=== PATIENT | male | born 1965 | race Two or more races ===

== ENCOUNTER 2017-04-29 08:44 | Emergency (ER) | payer MEDICAID ==
[~2017-04-29] VITALS: Ht 165.1 cm; Wt 90.7 kg
[~2017-04-29 08:44] MED LIST: NOVOLIN; ZOLP10TA
[2017-04-29 09:42] VITALS: BP 130/72
[2017-04-29] MEDS ORDERED: PROPARACAINE HCL 0.5% OPTH(EYE) SOL 15ML OP ONE (10:30)
[2017-04-29] MEDS ORDERED: FLUORESCEIN SOD 1 MG TEST STRIP RIGHTEYE ONE (10:30)
== END 2017-04-29 11:16 | disposition home or self-care (01) ==
LOC: ER 08:44
DX: S05.01XA Injury of conjunctiva and corneal abrasion without foreign body, right eye, initial encounter (principal); E11.9 Type 2 diabetes mellitus without complications; K21.9 Gastro-esophageal reflux disease without esophagitis; E78.5 Hyperlipidemia, unspecified; I10 Essential (primary) hypertension; X58.XXXA Exposure to other specified factors, initial encounter; Y93.89 Activity, other specified; Y99.8 Other external cause status; Y92.89 Other specified places as the place of occurrence of the external cause

== ENCOUNTER 2017-06-22 09:34 | Emergency (ER) | payer MEDICAID ==
[~2017-06-22] VITALS: Ht 165.1 cm; Wt 90.7 kg
[2017-06-22 09:49] VITALS: BP 106/66
[2017-06-22] MEDS ORDERED: KETOROLAC TROMETH 60MG/2ML VIAL IM ONE (11:00)
== END 2017-06-22 11:06 | disposition home or self-care (01) ==
LOC: ER 09:34
DX: S93.601A Unspecified sprain of right foot, initial encounter (principal); E11.9 Type 2 diabetes mellitus without complications; K21.9 Gastro-esophageal reflux disease without esophagitis; E78.5 Hyperlipidemia, unspecified; I10 Essential (primary) hypertension; X50.0XXA Overexertion from strenuous movement or load, initial encounter; Y93.89 Activity, other specified; Y99.8 Other external cause status; Y92.89 Other specified places as the place of occurrence of the external cause
CPT/HCPCS: 73630; 96372; 99284; J1885

== ENCOUNTER 2020-06-13 08:34 | Emergency (ER) | payer MEDICAID ==
[~2020-06-13] VITALS: Ht 165.1 cm; Wt 90.7 kg
[2020-06-13 09:27] VITALS: BP 149/70
== END 2020-06-13 11:08 | disposition home or self-care (01) ==
LOC: ER 08:34
DX: M79.5 Residual foreign body in soft tissue (principal); E11.9 Type 2 diabetes mellitus without complications; K21.9 Gastro-esophageal reflux disease without esophagitis; E78.5 Hyperlipidemia, unspecified; Z79.899 Other long term (current) drug therapy
CPT/HCPCS: 74018; 74176

== ENCOUNTER 2024-11-12 08:10 | Emergency (ER) | payer MEDICAID ==
[~2024-11-12] VITALS: Ht 165.1 cm; Wt 93.1 kg
[2024-11-12 08:28] VITALS: BP 139/57; PULSE 94; RESP 20; TEMP 98.6; O2SAT 95
--- NOTE | 2024-11-12 08:54 | ED.PDOC ---
Musculoskeletal HPI Comments A 59 YEAR OLD MALE PRESENTS TO THE ED WITH COMPLAINT OF RIGHT KNEE PAIN S/P CONTUSION AT WORK. PATIENT STATES THAT HE WAS AT WORK AND ACCIDENTALLY SLAMMED HIS RIGHT KNEE INTO A METAL FRAME AND HAS PAIN AND SOME MILD SWELLING. THERE IS NO DEFORMITY TO THE KNEE, BUT STATES THAT HE HAS 5/10 PAIN TO THE RIGHT KNEE. PATIENT IS ABLE TO AMBULATE WITH NORMAL GAIT. PATIENT DENIES FEVER, CHILLS, SHORTNESS OF BREATH, CHEST PAIN, ABDOMINAL PAIN, NAUSEA, VOMITING, HEADACHE, OR OTHER COMPLAINTS. NO OTHER SYMPTOMS OR MODIFYING FACTORS AT THIS TIME. PATIENT IS ALERT, ORIENTED X 4, AND HAS STEADY GAIT. Chief Complaint: Lower Extremity Time Seen by MD: 08:44 Primary Care Provider: NONE Reviewed Notes: Medications, Allergies Allergies: Coded Allergies: Cephalexin (Verified Allergy, Unknown, hives, 06/16/20) Penicillins (Verified Allergy, Unknown, 06/16/20) Home Meds Reported Medications Zolpidem Tartrate (Ambien) 10 Mg Tab 05/23/10 [Novolin] No Conflict Check 05/23/10 Information Source: Patient Mode of Arrival: Ambulatory Location: Left Extremity Location: Knee, Leg Timing: Days Prehospital treatment: None Severity: Moderate Able to Move Extremity: Yes Bear Weight: Fully Pain: Moderate Hand Dominance: Right Mechanism: Blunt Trauma Circumstances: Accident Onset of Symptoms: After Trauma Symptoms: Swelling, Pain DVT Risk Factors: NONE Last Tetanus: Unknown Associated signs and symptoms: Knee pain Past Medical History PAST MEDICAL HISTORY: DM, GERD, High Lipids, HTN Surgical History: Denies all surgeries Family History Family History: Unobtainable Social History Smoker: Non-Smoker Alcohol: Denies ETOH Use Drugs: Denies Drug Use Lives In: Home Constitutional: denies: chills, diaphoresis, fatigue, fever, malaise, sweats, weakness, others EENTM: denies: blurred vision, double vision, ear bleeding, ear discharge, ear drainage, ear pain, ear ringing, eye pain, eye redness, hearing loss, mouth pain, mouth swelling, nasal discharge, nose bleeding, nose congestion, nose pain, photophobia, tearing, throat pain, throat swelling, voice changes, others Respiratory: denies: cough, hemoptysis, orthopnea, SOB at rest, shortness of breath, SOB with excertion, stridor, wheezing, others Cardiovascular: denies: chest pain, dizzy spells, diaphoresis, Dyspnea on exertion, edema, irregular heart beat, left arm pain, lightheadedness, palpitations, PND, syncope, others Gastrointestinal: denies: abdomen distended, abdominal pain, blood streaked bowels, constipated, diarrhea, dysphagia, difficulty swallowing, hematemesis, melena, nausea, poor appetite, poor fluid intake, rectal bleeding, rectal pain, vomiting, others Genitourinary: denies: burning, dysuria, flank pain, frequency, hematuria, incontinence, penile discharge, penile sore, pain, testicle pain, testicle swelling, urgency, others Neurological: denies: dizziness, fainting, headache, left sided numbness, left sided weakness, numbness, paresthesia, pre-existing deficit, right sided numbness, right sided weakness, seizure, speech problems, tingling, tremors, weakness, others Musculoskeletal: reports: muscle pain; denies: back pain, gout, joint pain, joint swelling, muscle stiffness, neck pain, others Integumetry: denies: bruises, change in color, change in hair/nails, dryness, laceration, lesions, lumps, rash, wounds, others Allergic/Immunocompromised: denies: Difficulty Healing, Frequent Infections, Hives, Itching, others Hematologic/Lymphatic: denies: anemia, blood clots, easy bleeding, easy bruising, swollen glands, others Endocrine: denies: excessive hunger, excessive sweating, excessive thirst, excessive urination, flushing, intolerance to cold, intolerance to heat, unexplained weight gain, unexplained weight loss, others Psychiatric: denies: anxiety, bipolar disorder, depression, hopeless, panic disorder, schizophrenia, sleepless, suicidal, others All Other Systems: Reviewed and Negative Physical Exam General Appearance: No Apparent Distress, Normal HEENT: Normal ENT Inspection, PERRL/EOMI, Pharynx Normal, TMs Normal Neck: Full Range of Motion, Non-Tender, Normal, Normal Inspection Respiratory: Chest Non-Tender, Lungs Clear, No Accessory Muscle Use, No Respiratory Distress, Normal Breath Sounds Cardiovascular: No Edema, No JVD, No Murmur, No Gallop, Normal Peripheral Pulses, Regular Rate/Rhythm Breast Exam: Deferred Gastrointestinal: No Organomegaly, Non Tender, No Pulsatile Mass, Normal Bowel Sounds, Soft Genitalia: Deferred Pelvic: Deferred Rectal: Deferred Extremities: No calf tenderness, Normal capillary refill, Normal range of motion, No pedal edema, Tender (AND CONTUSION ON LEFT UNDER ANTERIOR KNEE, NO BONY TENDERNESS, SWELLING AND DEFORMITY, NO DVT SIGNS. 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 ), Dry, Normal Color, Warm Peripheral Pulses: 2+ carotid (R), 2+ carotid (L), 2+ dorsalis pedis (R), 2+ dorsalis pedis (L) Lymphatic: No Adenopathy Was a procedure done? Was a procedure done?: No Differential Diagnosis EXT Differential Diagnosis: Fracture, Sprain, Contusion, Strain, Bursitis X-Ray, Labs, Meds, VS Vital Signs Date Time Temp Pulse Resp B/P (MAP) Pulse Ox O2 Delivery O2 Flow Rate FiO2 11/12/24 08:28 98.6 99 20 139/57 (84) 95 98.6 11/12/24 08:28 94 20 95 Room Air 11/12/24 08:17 98.6 94 20 139/57 (84) 95 X-Ray, Labs, Meds, VS Comment LEFT TIB/FIB X-RAY: INTERPRETED BY ME. NO ACUTE FINDINGS. NO FRACTURES OR DISLOCATION. PENDING RADIOLOGIST REPORT. EXTERNAL MEDICAL RECORDS REVIEWED: [NONE] INDEPENDENT HISTORIANS: [NONE] SOCIAL DETERMINANTS OF HEALTH: [NONE] LABS ORDERED: NONE REVIEWED AND INTERPRETED RESULTS: NONE IMAGING ORDERED: NONE TREATMENTS ORDERED: PROCEDURES PERFORMED: NONE CRITICAL CARE TIME: NONE I HAVE DISCUSSED THE PATIENT WITH THE ATTENDING PHYSICIAN DR. ANNA AND HE AGREES WITH THE PATIENT'S PLAN OF CARE AND DISPOSITION. BASED ON HISTORY OF PRESENT ILLNESS, AND PHYSICAL EXAM, PATIENT WILL BE DISCHARGED HOME. DISCUSSED PLAN FOR DISCHARGE HOME WITH RX []. MEDICATION WARNINGS GIVEN. SHARED DECISION MAKING: DISCUSSED WITH PATIENT THAT THEIR WORKUP WAS NORMAL. PATIENT INSTRUCTED TO FOLLOW UP WITH PRIMARY CARE PROVIDER IN 1-2 DAYS FOR RE- EVALUATION OF SYMPTOMS. PATIENT VERBALIZES UNDERSTANDING TO RETURN TO ED FOR NEW OR WORSENING SYMPTOMS OR IF FOLLOW UP WITH PCP CANNOT BE OBTAINED. PATIENT FEELS COMFORTABLE GOING HOME AT THIS TIME. ALL QUESTIONS ADDRESSED AT TIME OF DISCHARGE. Time of 1ST Reevaluation: 09:36 Reevaluation 1ST: Improved Patient Education/Counseling: Diagnosis, Treatment, Prognosis Family Education/Counseling: Diagnosis, Treatment, Prognosis Medical Screening: No EMC Exist At This Time Departure 1 Departure Time of Disposition: 09:36 Impression: Primary Impression: Contusion of left leg Qualified Codes: S80.12XA - Contusion of left lower leg, initial encounter Disposition: HOME / SELF CARE / HOMELESS Condition: Stable Additional Instructions: FOLLOW-UP WITH PCP IN 1 TO 2 DAYS. TAKE MEDICATIONS PRESCRIBED. RETURN TO ED FOR ANY NEW OR WORSENING SYMPTOMS. Discharged With: Self Critical Care Note Critical Care Time?: No Stability Stability form required: No Heart Score Heart Score: Heart Score Response (Comments) Value History N/A 0 EKG N/A 0 Age N/A 0 Risk Factors N/A 0 Troponin N/A 0 Total 0 I personally scribed for JER JOSEPH ([email or web address]) on 11/12/24 at 08:54. Electronically submitted by Kenrick Reyes ([email or web address]). I personally scribed for JER JOSEPH ([email or web address]) on 11/12/24 at 09:03. Electronically submitted by Kenrick Reyes ([email or web address]). JER JOSEPH Nov 12, 2024 08:54
--- NOTE | 2024-11-12 09:07 | DVH ---
CLINICAL INDICATION: Trauma TECHNIQUE: 2 radiographic views of the left tibia/fibula were obtained. Comparison: None FINDINGS/IMPRESSION: There is no evidence of acute fracture or dislocation. The visualized joint space is well maintained. The alignment is anatomical. There is no radiopaque foreign body.
== END 2024-11-12 09:32 | disposition home or self-care (01) ==
LOC: ER 08:10
DX: S80.12XA Contusion of left lower leg, initial encounter (principal); E11.9 Type 2 diabetes mellitus without complications; I10 Essential (primary) hypertension; K21.9 Gastro-esophageal reflux disease without esophagitis; E78.5 Hyperlipidemia, unspecified; Z88.0 Allergy status to penicillin; Z88.1 Allergy status to other antibiotic agents; X58.XXXA Exposure to other specified factors, initial encounter; Y93.89 Activity, other specified; Y92.89 Other specified places as the place of occurrence of the external cause; Y99.0 Civilian activity done for income or pay
CPT/HCPCS: 73590